=== PATIENT | female | born 1975 ===

== ENCOUNTER 2016-10-27 07:17 | Day surgery (SDC) | payer MEDICAID ==
[2016-10-13 09:35] VITALS: BMI 37.8
[2016-10-27] MEDS ORDERED: Bupivacaine 0.5% Inj(30mL) ONE (08:08)
[2016-10-27] MEDS ORDERED: Lidocaine 1% Inj (20ml) ONE (08:08)
[2016-10-27] MEDS ORDERED: Midazolam 2 MG/2 ML VIAL ONE (09:02)
[2016-10-27] MEDS ORDERED: Propofol 10 mg/ml Inj (20 ML) ONE (09:07)
[2016-10-27] MEDS ORDERED: ePHEDrine 50 mg/ml Inj ONE ×2 (09:30→10:05)
[2016-10-27] MEDS ORDERED: Phenylephrine 10 mg/ml Inj ONE (10:00)
[2016-10-27] MEDS ORDERED: HYDROmorphone 0.5 mg/0.5 ml ISec IVP PRN (10:26)
--- NOTE | 2016-10-27 10:29 | PCM.SURG1 ---
Surgeon's Initial Post Op Note - Surgeon's Notes Surgeon: Saeed Cd Technician: Susie PGY2 Type of Anesthesia: General LMA, Local Pre-Operative Diagnosis: Left chest wall mass Operative Findings: symmetrical, firm, mobile mass Post-Operative Diagnosis: same Operation Performed: excision of chest wall mass Specimen/Specimens Removed: chest wall mass Estimated Blood Loss: EBL {In ML}: 20 Blood Products Given: N/A Drains Used: No Drains Post-Op Condition: Good Date of Surgery/Procedure: 10/27/16 Time of Surgery/Procedure: 10:29
[2016-10-27] MEDS ORDERED: Sodium Chloride 0.9% 1,000 ML IV SCH (10:30)
[2016-10-27 11:54] VITALS: PULSE 84; RESP 18; TEMP 98.3
[2016-10-27 12:23] VITALS: BP 126/67; O2SAT 97
--- NOTE | 2016-10-29 00:37 | OP ---
PROCEDURE DATE: 10/27/2016 ROOM: [facility]. SURGEON: Td Tipton M.D. TOBACCO CURER: Brock Richards DO, PGY-2. REFUELING RAMP ATTENDANT: Dr. Og. ANESTHESIA: General -- LMA -- Marcaine 0.5 -- 18 mL. PREOPERATIVE DIAGNOSIS: 5 cm chest wall tumor (subcutaneous). POSTOPERATIVE DIAGNOSIS: A 5 cm chest wall tumor (subcutaneous). PATHOLOGY: Pending. PROCEDURE: 10/27/2016, excision of a chest wall tumor. Advancement flap intermediate layered closure 8 cm. OPERATIVE INDICATION: The patient is a 41-year-old Voodoo female with enlarging mass just below the left clavicle in a subcutaneous location. It is painless. It is becoming mildly inflamed on the ski n and has been present for many months and seems to be getting bigger in size. The patient has no ot her systemic complaint or medical issue and the lesion does not exactly appear to be a ruptured subcu taneous sebaceous cyst. Risks, benefits and alternatives with their anticipated outcomes were discus sed with the patient and she signs the informed consent for removal with anesthesia and local togethe r. OPERATIVE NOTE: The patient is brought to the operating room from the same day holding area where th e lesion has been marked and identified. She undergoes timeout procedure after identification of her wrist band and is placed on the table in a supine position. Following the induction of general anes thesia, an intralaryngeal mask is inserted and the anterior chest wall and shoulders are prepped with Hibiclens, chlorhexidine preparation and then aseptically draped. Elliptical excision is employed, completely surrounding the lesion, and the dissection is carried on through the skin to the anterior pectoralis fascia below. Infiltration of the skin is employed from the outermost layers down to the chest wall musculature using the long acting bupivacaine anesthetic. Hemostasis is contained with electrocoagulating cautery and the lesion is dissected free in its entir ety and, just prior to being transferred to pathology in formalin, it is transected by the operating surgeon, demonstrating a several centimeters lesion with smooth circumscribed borders and a bulging f leshy larkin-appearing center of solid cells. The presentation at this point is one of suspected malig tawnya, but of unclear etiology. The pathologist has been notified that this specimen is coming and w ill look at it prior to obtaining permanent sections. The wound is now lavaged with saline, aspirated and hemostasis confirmed. The flaps are dissected at the level of the pectoralis fascia with cautery coagulating current, freei ng the inferior and superior skin edges to a tension-free approximation with interrupted 3-0 Polysorb suture. The skin is then closed with subcuticular 4-0 Biosyn suture and Dermabond adhesive. A dry dressing is placed over same. The patient is awakened, extubated and [facility] satisfactory condition. Sponge, instrument and suture count were verified as correct at the e nd of the procedure. Estimated blood loss during this procedure was less than 10 mL of blood. The director surgical was present throughout the procedure and was very helpful in performing parts of the procedure and providing exposure from beginning to end. This dictation will be electronically signed without being read. Td Tipton MD cc: [id number] TT: 10/29/2016 00:36:55 dc
== END 2016-10-27 13:00 | disposition home or self-care (01) ==
LOC: SDS 07:17
PROVIDERS: ATTEND Surgery
DX: C44.599 Other specified malignant neoplasm of skin of other part of trunk (principal)
CPT/HCPCS: 14000; 84703; 88307; J0690; J1100; J1170; J2250; J2370; J2405; J2704; J3010; J7040; J7120

== ENCOUNTER 2017-03-02 07:26 | Day surgery (SDC) | payer MEDICAID ==
[2016-10-13 09:35] VITALS: BMI 37.8
[2017-03-02] MEDS ORDERED: Bupivacaine 0.5% Inj(30mL) ONE (07:31)
[2017-03-02] MEDS ORDERED: Midazolam 2 MG/2 ML VIAL ONE (07:49)
[2017-03-02] MEDS ORDERED: Propofol 10 mg/ml Inj (20 ML) ONE (07:49)
[2017-03-02] MEDS ORDERED: Lidocaine 1% Inj (20ml) ONE (07:53)
[2017-03-02] MEDS ORDERED: ePHEDrine 50 mg/ml Inj ONE (08:32)
--- NOTE | 2017-03-02 09:21 | PCM.SURG1 ---
Surgeon's Initial Post Op Note - Surgeon's Notes Surgeon: Dr Tipton Estate Planning Attorney: Dr Hines PGY3, Russ MS3 Type of Anesthesia: General Endo Pre-Operative Diagnosis: chest wall sarcoma Operative Findings: as above Post-Operative Diagnosis: revision of scar - s/p excision of chest wall sarcoma Operation Performed: as above - scar revision s/p excision of chest wall sarcoma Specimen/Specimens Removed: scar Estimated Blood Loss: EBL {In ML}: 5 Blood Products Given: N/A Drains Used: No Drains Post-Op Condition: Good Date of Surgery/Procedure: 03/02/17 Time of Surgery/Procedure: 09:21
[2017-03-02] MEDS ORDERED: HYDROmorphone 0.5 mg/0.5 ml ISec IVP PRN (09:22)
[2017-03-02] MEDS ORDERED: Oxycodone/Acetaminophen 5/325 mg Tab PO PRN (09:22)
[2017-03-02] MEDS ORDERED: HYDROmorphone 0.5 mg/0.5 ml ISec ONE ×3 (10:16→10:44)
[2017-03-02] MEDS ORDERED: HYDROmorphone 0.5 mg/0.5 ml ISec IVP ONE ×3 (10:19→10:47)
[2017-03-02 11:19] VITALS: PULSE 97; RESP 20; TEMP 98.5
[2017-03-02 12:28] VITALS: O2SAT 96
[2017-03-02] MEDS ORDERED: Oxycodone/Acetaminophen 5/325 mg Tab ONE (12:28)
[2017-03-02 14:17] VITALS: BP 132/71
--- NOTE | 2017-03-03 23:17 | OP ---
PROCEDURE DATE: 03/02/2017 SURGEON: Dr. Tipton. MANAGER TELECOM: Yvon Hines DO, PGY-2 COOK NIGHT: Dr. Og. 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 PATHOLOGY: Pending. PROCEDURE: On 03/02/2017: 1. Wide excision of recurrent or marginal tumor. 2. An intermediate closure of 10 cm. 3. Advancement flap creation and closure. 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 The pathology specimen demonstrated a tiny microscopic marginal invasion at the edge of the dissection, and the patient was recommended for further wide excisional debridement. The somewhat prolonged delay was to allow for healing to occur as the wound and took one month to close and the timing of school students and the heat of the summer, the patient's choice was to come at this time. Risks, benefits, and alternatives with their anticipated outcomes were described to the patient and she signs the informed consent. OPERATIVE NOTE: The patient was brought from the same-day holding area to the operating room. She was identified by her wrist band and the marking on the skin and underwent time-out procedure. She was then placed on the operative table in a supine manner, underwent induction of general anesthesia with the insertion of an intralaryngeal mask. The left chest and the neck were prepped with Hibiclens and chlorhexidine preparation and the patient was then aseptically draped. An elliptical incision was marked on the skin at least 2 cm from the previous incision and infiltration was employed the long-acting bupivacaine plain. Following this, the elliptical incision was incised with scalpel and the dissection was carried on down through the subcutaneous tissues to the pectoralis musculature below. Hemostasis was contained with electrocoagulating cautery and the specimen was completely removed and submitted to pathology in formalin. The wounds were approximated with significant tension, requiring elevation of the skin flaps on the superior and inferior aspect using the electrocoagulating cautery for dissection and hemostasis. Once this was performed, the skin could be approximated with much less tension and interrupted subcuticular 2-0 Polysorb sutures were employed and a subcuticular 3-0 Biosyn suture was employed for the cuticular closure. An additional reinforcement of 3 vertical mattress sutures of 2-0 nylon was employed and Dermabond adhesive was placed over the skin edge and allowed to dry. The patient was awakened, extubated, and transported to the recovery room in a satisfactory condition. Sponge, instrument, and suture count were verified as correct at the end of the procedure. Estimated blood loss during the procedure was less than 40 mL of blood. This dictation will be electronically signed without being read. The surgical product sales consultant was present throughout the procedure from beginning to the end and was extremely important in helping in the dissection and in the closure of this particular enlarged wound. Td Tipton MD
== END 2017-03-02 14:50 | disposition home or self-care (01) ==
LOC: SDS 07:26
PROVIDERS: ATTEND Surgery
DX: C44.599 Other specified malignant neoplasm of skin of other part of trunk (principal)
CPT/HCPCS: 14000; 84703; 88307; J0690; J1100; J1170; J2250; J2405; J2704; J3010; J7030; J7120